=== PATIENT | male | born 1940 | race African-American/Black ===

== ENCOUNTER 2018-12-08 09:26 | Day surgery (SDC) | payer OTHER ==
[2018-12-01 10:06] VITALS: BMI 26.7
--- NOTE | 2018-12-08 07:14 | HP ---
History & Physical Update - History History: No Change - Physical Physical: No Change - Assessment Assessment: No Change - Plan Plan: No Change (Initial H&P (located in his paper chart) is complete and accurate from 12/07/18. Will be scanned into his [facility]. No new complaints or medications.)
[2018-12-08] MEDS ORDERED: GABAPENTIN 300 MG CAPSULE (FP) PO STA (09:57)
[2018-12-08] MEDS ORDERED: CEFAZOLIN 2 GM in DEXTROSE 5%-WATER - 100 ML IVPB ONE (09:57)
[2018-12-08] MEDS ORDERED: oxyCODONE HCL 10 MG SUSTAINED ACTING TABLET PO STA (09:57)
[2018-12-08] MEDS ORDERED: BUPIVACAINE HCL/PF (5 MG/ML) 30 ML VIAL IJ ONE (10:34)
[2018-12-08] MEDS ORDERED: MIDAZOLAM HCL 2 MG/2 ML SINGLE DOSE VIAL ONE (10:34)
[2018-12-08] MEDS ORDERED: DEXAMETHASONE SOD PHOSPHATE/PF 10 MG/ML SDV ONE (10:35)
[2018-12-08] MEDS ORDERED: THROMBIN (RECOMBINANT) 5,000 UNIT VIAL TP ONE (11:21)
[2018-12-08] MEDS ORDERED: LIDOCAINE 1%/EPI 1:100000 (20 ML MULTI DOSE VIAL) ONE (11:21)
[2018-12-08] MEDS ORDERED: PROPOFOL 20 ML ONE ×9 (11:25→12:32)
[2018-12-08] MEDS ORDERED: SUCCINYLCHOLINE CHLORIDE 200 MG/10 ML VIAL ONE (11:25)
[2018-12-08] MEDS ORDERED: MAGNESIUM SULF 50% (8.12 MEQ/2 ML-1 GM VIAL) ONE (11:42)
[2018-12-08] MEDS ORDERED: LIDOCAINE 1%/EPI 1:100000 (20 ML MULTI DOSE VIAL) IJ ONE (11:45)
[2018-12-08] MEDS ORDERED: ceFAZolin SODIUM 1 GM VIAL IVPB ONE (11:47)
[2018-12-08] MEDS ORDERED: PHENYLEPHRINE HCL 10 MG/1 ML SINGLE DOSE VIAL ONE (12:06)
[2018-12-08] MEDS ORDERED: LABETALOL HCL 5 MG/1 ML (100MG/20 ML VIAL) ONE (12:10)
[2018-12-08] MEDS ORDERED: THROMBIN (BOVINE) 5,000 UNIT VIAL TP ONE (12:37)
[2018-12-08] MEDS ORDERED: GELATIN SPONGE,ABSORBABLE 1 GM PACKET TP ONE (12:38)
--- NOTE | 2018-12-08 13:14 | OP ---
Operative Note - Note: Operative Date: 12/08/18 Pre-Operative Diagnosis: Cervical Radiculopathy Operation: C3/4 ACDF, allograft implant. neuromonitoring Post-Operative Diagnosis: Same as Pre-op Surgeon: Audi Velásquez Golf Cart Assembler: Jesus Reyes Anesthesiologist/RIGHT OF WAY MAN: Marcio Vasquez Anesthesia: General Specimens Removed: C3/4 disc Estimated Blood Loss (mls): 5 Fluid Volume Replaced (mls): 1,000 Operative Report Dictated: Yes
--- NOTE | 2018-12-08 13:16 | SURG ---
Surgery Personal Lines Insurance Agent Note Personal Lines Insurance Agent: Jesus Reyes PA-C Date of Service: 12/08/18 Diagnosis: Cervical Radiculopathy Procedure: Anterior Cervical Discectomy/Fusion C3/4. Allograft Implant. Neuromonitoring I was present for the entirety of the operative procedure. For further detail, please refer to operative report. Visit type - Case Type Case Type: Scheduled - New patient This patient is new to me today: Yes Date on this admission: 12/08/18
[2018-12-08] MEDS ORDERED: ACETAMINOPHEN 500 MG TABLET (FP) PO PRN (13:18)
[2018-12-08] MEDS ORDERED: ONDANSETRON 4 MG/2 ML VIAL IVPUSH PRN (13:19)
[2018-12-08] MEDS ORDERED: morphine SULFATE 4 MG/ML VIAL IVPUSH PRN (13:19)
[2018-12-08] MEDS ORDERED: KETOROLAC TROMETHAMINE 30 MG/1 ML VIAL IVPUSH PRN (13:19)
[2018-12-08] MEDS ORDERED: oxyCODONE HCL 5 MG TABLET PO PRN ×2 (13:19)
[2018-12-08] MEDS ORDERED: PATIENT'S OWN MEDICATION (NON-FORMULARY) (Dulaglutide [Trulicity] 0.75 MG) SQ SCH (13:30)
[2018-12-08] MEDS ORDERED: LACTATED RINGERS SOLUTION 1,000 ML IV SCH ×2 (13:30→15:45)
--- NOTE | 2018-12-08 14:10 | OP ---
DATE OF OPERATION: 12/08/2018 PREOPERATIVE DIAGNOSIS: Cervical stenosis, C3-4. POSTOPERATIVE DIAGNOSIS: Cervical stenosis, C3-4. PROCEDURE PERFORMED: Anterior cervical diskectomy and fusion, C3-4, placement of instrumentation at C3-4. SURGEON: Audi Velásquez MD AUTOMATIC GLOVE TURNER AND FORMER: EVELIN Genao ESTIMATED BLOOD LOSS: 50 mL. INTRAVENOUS FLUIDS: Per Anesthesia. ANESTHESIA: General/MCP block. COMPLICATIONS: None. DISPOSITION: Patient brought to the PACU in stable condition. INDICATION FOR SURGERY: The patient is a 78-year-old gentleman who has been suffering from pain from his neck down to his arms, along with numbness and tingling. He has had difficulty using his hands. He also has difficulty with balance. X -rays and MRI were completed which noted that he had cervical stenosis at C3-4. I discussed the diagnosis of cervical myelopathy with the patient including the stepwise deterioration in function. Risks, benefits, and alternatives of surgery were discussed, and the patient consented to surgery. DESCRIPTION OF OPERATION: Patient was brought to the operating room by the anesthesia staff. After appropriate patient identification was performed, general anesthesia was given. An MCP block was also given. Patient was placed supine on the OR bed with his arms tucked in to the side. All areas of bony prominences were well padded at this time. A shoulder roll was placed underneath his neck to extend his neck to the point that he could tolerate in the preoperative holding area. A needle was taped onto his neck to ja off the C3-4 level. X-ray was taken to confirm this as correct. Needle was removed. Next, 10 mL of lidocaine with epinephrine were injected in his neck. At this time, his neck was prepped and draped in sterile manner. At this point, timeout was completed. A 2-inch incision was made in the left side of his neck. Dissection was carried down to the platysma. The platysma was cut in line with the skin incision. Next, the interval between the sternocleidomastoid and strap muscles was developed. Next, the interval between the carotid sheath and tracheoesophagus was developed. Peanuts were used to elevate it off the prevertebral fascia. A needle was placed into the C3-4 disk. X-ray was taken to confirm this was correct. Needle was removed, and the longus colli muscles were elevated off. Retractor blades were placed in. A knife was used to incise the disk. Distraction was applied. . Using a series of pituitaries, Kerrisons, and curettes, a diskectomy then was completed. Endplates were decorticated. A cage filled with bone graft was placed in. Chester pins were removed. The screw was placed into the body of C3 and C4. X-rays confirmed the instrumentation to be in good position. Final tightening was performed. The platysma was closed with 2-0 Vicryl suture. Skin was closed with 3-0 Monocryl suture. Dermabond was applied. Steri-Strips were applied. A sterile dressing was applied. Patient was placed supine on the OR bed, brought to the PACU in stable condition. Hai DIAZ/[id number] MTDD
[2018-12-08] MEDS ORDERED: KETOROLAC TROMETHAMINE 30 MG/1 ML VIAL ONE (14:45)
[2018-12-08] MEDS: CEFAZOLIN 1 GM/D5W 1 GM/50 ML BAG IVPB SCH (17:03)
[2018-12-09] MEDS: CEFAZOLIN 1 GM/D5W 1 GM/50 ML BAG IVPB SCH (01:10)
[2018-12-09 06:24] VITALS: BP 137/72; PULSE 71; TEMP 98.6
--- NOTE | 2018-12-09 08:46 | DS ---
Physical Exam: SUBJECTIVE: Patient seen and examined this am. No CP/sob or nausea. Voiding without difficulty. Pain improved to upper back, right hand tingling still present but pain and strength better. Tolerating a regular diet without difficulty swallowing. OBJECTIVE: Vital Signs Temperature 98.6 F 12/09/18 06:00 Pulse Rate 71 12/09/18 06:00 Respiratory Rate 18 12/09/18 06:00 Blood Pressure 137/72 12/09/18 06:00 O2 Sat by Pulse Oximetry (%) 97 12/09/18 06:00 PHYSICAL EXAM GENERAL: The patient is awake, alert, and fully oriented, in no acute distress. NECK: Trachea midline. Dressing c/d/i. Soft and without and masses. LUNGS: Breath sounds equal, clear to auscultation bilaterally.. HEART: Regular rate and rhythm. ABDOMEN: Soft, nontender, nondistended. EXTREMITIES: no edema or calf tenderness b/l to LE. NEUROLOGICAL:Normal speech, gait not observed. 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 LABS CBC,CMP POC Glucometer 115 UNITS (80-120) 12/08/18 10:01 HOSPITAL COURSE: The patient was admitted to the Med-Surg Unit after an elective repair of their cervical stenosis. Now, s/pACDF C3/4. The day of surgery, the patient ambulated the hallways with assistance. Narcotic and non-narcotic pain management control was achieved with an oral and IV approach. An xray was obtained and confirmed hardware placement at C3/4, no fractures or dislocations. Deanna-operative IV ABX were administered. DVT prophylaxis was achieved with SCDs and early ambulation. The patient ambulated with Physical Therapy and no services were recommended upon discharge. Narcotic scripts and or muscle relaxants were checked with [facility] prior to escibe. The discharge instructions and an oral pain management plan were reviewed with the patient. All questions answered. Above plan discussed with Dr. Velásquez and agreed. Date of Admission:12/08/18 Date of Discharge: 12/09/18 Minutes to complete discharge: 20 Visit type - Case Type Case Type: Scheduled - Emergency Emergency Visit: No - New patient This patient is new to me today: Yes Date on this admission: 01/08/19 - Critical Care Critical Care patient: No
--- NOTE | 2018-12-09 09:06 | PN ---
Progress Note (short form) - Note Progress Note: ANESTHESIA POSTOP 78 YO MALE POD#1 Patient sitting in bed eating. No complaints. VSS, Afebrile Continue current care. Encouraged IS and mobility per surgical recs. No anesthetic complications
[2018-12-09] MEDS ORDERED: PT OWN MED DRAWER 7, Y5N ONE (09:49)
[2018-12-09] MEDS ORDERED: FINASTERIDE 5 MG TABLET (FP) PO SCH (10:00)
[2018-12-09] MEDS ORDERED: LOSARTAN POTASSIUM 50 MG TABLET (FP) PO SCH (10:00)
[2018-12-09] MEDS ORDERED: ATENOLOL 50 MG TABLET (FP) PO SCH (10:00)
[2018-12-09] MEDS ORDERED: INSULIN GLARGINE SQ SCH (10:00)
[2018-12-09] MEDS ORDERED: PATIENT'S OWN MEDICATION (NON-FORMULARY) (Ergocalciferol (Vitamin D2) [Vitamin D2] 2,000 U PO SCH (10:00)
[2018-12-09] MEDS ORDERED: FAMOTIDINE 20 MG TABLET PO SCH (10:00)
[2018-12-09] MEDS ORDERED: PATIENT'S OWN MEDICATION (NON-FORMULARY) (Losartan Potassium [Losartan Potassium] 100 MG) PO SCH (10:00)
[2018-12-09] MEDS ORDERED: PATIENT'S OWN MEDICATION (NON-FORMULARY) (Famotidine [Pepcid] 40 MG) PO SCH (10:00)
[2018-12-09] MEDS ORDERED: ATORVASTATIN CA 80 MG TABLET (FP) PO SCH (10:00)
[2018-12-09] MEDS ORDERED: PATIENT'S OWN MEDICATION (NON-FORMULARY) (Atenolol [Tenormin -] 100 MG) PO SCH (10:00)
[2018-12-09] MEDS ORDERED: amLODIPine BESYLATE 5 MG TABLET (FP) PO SCH (10:00)
--- NOTE | 2018-12-12 17:50 | PATH ---
Surgical Pathology Report Patient Name: TEN PACK JR [facility]. Rec. #: [id number] /Age/Gender: 1940 (Age: 78) / M Account: [id number] Location: [facility] AM[facility] Taken: 12/08/2018 Received: 12/08/2018 Reported: 12/12/2018 Physicians: Audi Velásquez M.D. Specimen(s) Received CERVICAL DISC C3-4 Clinical History Cervical stenosis Final Diagnosis CERVICAL DISC, C3-4, ANTERIOR CERVICAL DISCECTOMY AND FUSION: BENIGN INTERVERTEBRAL DISC TISSUE. Electronically Signed Aide Seals M.D. Gross Description Received in formalin labeled "cervical C3-4," is a 1.8 x 1.4 x 0.3 cm aggregate of aponte fragments of fibrocartilaginous tissue. The specimen is entirely submitted in one cassette. /12/09/201812/09/2018
== END 2018-12-09 12:19 | disposition home or self-care (01) ==
LOC: FASU 09:26 → FM/S 15:10 → FASU 12-09 12:19
PROVIDERS: ATTEND Orthopaedic Surgery Orthopaedic Surgery of the Spine
PROC: 0RG10A0 Fusion of Cervical Vertebral Joint with Interbody Fusion Device, Anterior Approach, Anterior Column, Open Approach (ICD-10-PCS; 2018-12-08)
PROC: 0RG10K0 Fusion of Cervical Vertebral Joint with Nonautologous Tissue Substitute, Anterior Approach, Anterior Column, Open Approach (ICD-10-PCS; 2018-12-08)
PROC: 0RB30ZZ Excision of Cervical Vertebral Disc, Open Approach (ICD-10-PCS; principal; 2018-12-08 11:30)
DX: M48.02 Spinal stenosis, cervical region (principal)
CPT/HCPCS: 22551; 22552; 22845; 22853; C1889; 72050-TC-FY; 82962; 88304-TC; 94760